=== PATIENT | female | born 1970 | race Caucasian/White ===

== ENCOUNTER 2018-04-03 10:46 | Emergency (ER) | payer OTHER ==
[2018-04-03 12:00] LABS: URINE PH (Dip) POC 5.5 (5.0-8.5)
[2018-04-03 12:00] LABS: URINE BLOOD (Dip) POC Negative (NEGATIVE); URINE GLUCOSE (Dip) POC Negative (NEGATIVE); URINE KETONES (Dip) POC Negative (NEGATIVE); URINE LEUKOCYTE EST (Dip) POC Negative (NEGATIVE); URINE NITRITE (Dip) POC Negative (NEGATIVE); URINE TOTAL PROTEIN POC Negative (NEGATIVE)
== END 2018-04-03 13:06 | disposition home or self-care (01) ==
LOC: FTE 10:46
DX: R30.0 Dysuria (principal); M62.830 Muscle spasm of back; R40.2412 Glasgow coma scale score 13-15, at arrival to emergency department
CPT/HCPCS: 81003; 99284